=== PATIENT | male | born 1985 | race Caucasian/White ===

== ENCOUNTER 2017-03-23 23:45 | Emergency (ER) | payer SELFPAY ==
[~2017-03-23] VITALS: Ht 175.3 cm; Wt 61.2 kg
[2017-03-23 23:49] VITALS: BP 132/59
--- NOTE | 2017-03-24 00:32 | NUR ---
TO ER OF1
--- NOTE | 2017-03-24 00:33 | NUR ---
Patient being evaluated by physician.
--- NOTE | 2017-03-24 00:37 | NUR ---
PT BIB FAMILY C/O DIFF OF BREATHING, FOR A WEEK, LEFT FLANK PAIN, DIZZINESS, SEEN BY PMD YESTERDAY WITH PRESCRIPTION, NOW WITH DIARRHEA 20 TIMES. PT DENIES ANY TRAUMA, SKIN IS INTACT, PINK/WARM/DRY; AAOX4, PERRL, WITH EVEN AND STEADY GAIT; LUNGS CLEAR BL, BREATHING UNLABORED; HR EVEN AND REGULAR, BL PERIPHERAL PULSES PRESENT; BS ACTIVE X4, NO TENDERNESS TO PALPATION, NO HEPATOSPLENOMEGALLY PALPATED, RESONANT TO PERCUSSION; PT DENIES ANY FEVER, CP, OR COUGH AT THIS TIME; PT STATES 8/10 PAIN AT THIS TIME; VSS; PATIENT POSITIONED FOR COMFORT; HOB ELEVATED; BEDRAILS UP X2; BED DOWN. ER MD TO ARCHIE, ALL ORDER EXECUTED
[2017-03-24] MEDS ORDERED: KETOROLAC 30 MG/ML VIAL IVP ONE (00:40)
[2017-03-24] MEDS ORDERED: cefTRIAXone 2,000 MG in DEXTROSE 5% 100 ML IV ONE (00:40)
[2017-03-24] MEDS ORDERED: NACL 0.9% 1,000 ML IV ONE (00:40)
[2017-03-24] MEDS ORDERED: cefTRIAXone 2,000 MG VIAL ONE (00:51)
--- NOTE | 2017-03-24 00:51 | NUR ---
MOVED TO ER BED 3
[2017-03-24 01:12] LABS: APPEARANCE,URINE CLEAR (CLEAR); BILIRUBIN,URINE NEGATIVE (NEGATIVE); BLOOD, URINE NEGATIVE (NEGATIVE); COLOR,URINE YELLOW (YELLOW); LEUKOCYTE ESTERASE ,URINE NEGATIVE (NEGATIVE); NITRITE, URINE NEGATIVE (NEGATIVE); PROTEIN,URINE NEGATIVE (NEGATIVE); UGLUCOSE NEGATIVE (NEGATIVE); UROBILINOGEN,URINE 0.2 EU/dL (0.2 - 1)
[2017-03-24 01:21] LABS: HEMATOCRIT 46.5 % (36-52); HEMOGLOBIN 15.4 g/dL (12.0-18.0); MEAN CORPUSCULAR HEMOGLOBIN 30 pg (27-31); MEAN CORPUSCULAR HGB CONC 33 g/dL (33-37); MEAN CORPUSCULAR VOLUME 91 fL (80-94); PLATELET COUNT (AUTO) 244 K/uL (140-450); RED BLOOD CELL COUNT(AUTO) 5.14 MIL/uL (4.20-6.10); RED CELL DISTRIBUTION WIDTH 12.2 % (11.6-13.7)
[2017-03-24 01:35] LABS: BASOPHILS % (MANUAL) 0 % (0-2)
[2017-03-24 01:39] LABS: LYMPHOCYTES % (MANUAL) 60 % (20-46); NEUTROPHILS % (MANUAL) 30 (43-65)
[2017-03-24 01:40] LABS: EOSINOPHILS % (MANUAL) 3 % (0-4); MONOCYTES % (MANUAL) 7 % (5-12)
--- NOTE | 2017-03-24 01:41 | NUR ---
Patient appears to be resting comfortably in bed. Vital Signs within normal limits. Respirations even and unlabored.
[2017-03-24 01:47] LABS: ANION GAP 11.7 (8-16); CALCIUM 8.9 mg/dL (8.5-10.1); CARBON DIOXIDE 30.2 mmol/L (21-32); CREATININE 1.1 mg/dL (0.6-1.3); POTASSIUM 3.9 mmol/L (3.5-5.1)
[2017-03-24 01:53] LABS: ALBUMIN 3.8 g/dL (3.4-5.0); TOTAL BILIRUBIN 0.4 mg/dL (0.0-1.0); TOTAL PROTEIN, SERUM 7.9 g/dL (6.4-8.2)
[2017-03-24 02:18] VITALS: BP 112/76
--- NOTE | 2017-03-24 02:18 | NUR ---
Patient discharged with v/s stable. Written and verbal after care instructions given and explained. Patient verbalized understanding. Ambulatory with steady gait. All questions addressed prior to discharge. Advised to follow up with PMD OR RETURN TO ER IF CONDITION WORSENS.
== END 2017-03-24 02:18 | disposition home or self-care (01) ==
LOC: MED 23:45
DX: N12 Tubulo-interstitial nephritis, not specified as acute or chronic (principal); J45.909 Unspecified asthma, uncomplicated
CPT/HCPCS: 36415; 80053; 81003; 85025; 96365; 96375; 99284; J0696; J1885; J7030

== ENCOUNTER 2018-11-10 17:52 | Emergency (ER) | payer SELFPAY ==
[~2018-11-10] VITALS: Ht 175.3 cm; Wt 64.0 kg
[2018-11-10 18:30] VITALS: BP 121/8
--- NOTE | 2018-11-10 19:09 | NUR ---
PATIENT AMBULATED TO BED 9
--- NOTE | 2018-11-10 19:15 | NUR ---
33/M PRESENTS TO ED WITH FAMILY/FRIEND, C/O L ELBOW PAIN, X2 WEEKS, S/P FALL WHILE ICE SKATING. L MEDIAL ELBOW HEMATOMA AND SWELLING NOTED, SKIN INTACT, +TENDERNESS, +CIRCULATION, +SENSATION, DECREASED ROM. REPORTS TAKING TYLENOL WITH LITTLE RELIEF. DENIES MED HX OR RX.
--- NOTE | 2018-11-10 19:37 | NUR ---
HAI DE LA CRUZ AT BEDSIDE
[2018-11-10 20:07] VITALS: BP 123/83
== END 2018-11-10 20:07 | disposition home or self-care (01) ==
LOC: MED 17:52
DX: S52.122A Displaced fracture of head of left radius, initial encounter for closed fracture (principal); J45.909 Unspecified asthma, uncomplicated; Z98.890 Other specified postprocedural states; V00.131A Fall from skateboard, initial encounter; Y93.51 Activity, roller skating (inline) and skateboarding; Y92.89 Other specified places as the place of occurrence of the external cause; Y99.8 Other external cause status
CPT/HCPCS: 29105; 73080; 99283

== ENCOUNTER 2022-03-10 22:51 | Emergency (ER) | payer SELFPAY ==
[~2022-03-10] VITALS: Ht 175.3 cm; Wt 63.5 kg
[2022-03-10 22:53] VITALS: BP 126/69
--- NOTE | 2022-03-10 23:07 | NUR ---
Dr. Cueva at Chair A to exam patient.
[2022-03-10] MEDS ORDERED: LORazepam 2 MG/ML VIAL IM ONE (23:10)
--- NOTE | 2022-03-10 23:15 | NUR ---
Patient ambulated to bed 10.
[2022-03-10] MEDS ORDERED: LORazepam 1 MG TAB PO ONE (23:20)
--- NOTE | 2022-03-10 23:55 | NUR ---
X-ray at bedside.
[2022-03-11] MEDS ORDERED: NACL 0.9% 1,000 ML IV ONE
[2022-03-11] MEDS ORDERED: ATI.5 PO (00:41)
--- NOTE | 2022-03-11 00:54 | NUR ---
Dr. Cueva at bedside to explain results.
[2022-03-11 01:40] VITALS: BP 104/63
--- NOTE | 2022-03-11 01:40 | NUR ---
Patient discharged with v/s stable. Written and verbal after care instructions given and explained. Patient alert, oriented and verbalized understanding of instructions. Ambulatory with steady gait. All questions addressed prior to discharge. ID band removed. Patient advised to follow up with PMD. Rx of LORAZEPAM given. Patient educated on indication of medication including possible reaction and side effects. Opportunity to ask questions provided and answered.
== END 2022-03-11 01:40 | disposition home or self-care (01) ==
LOC: MED 22:51
DX: F41.0 Panic disorder [episodic paroxysmal anxiety] (principal); J45.909 Unspecified asthma, uncomplicated; Z79.899 Other long term (current) drug therapy
CPT/HCPCS: 71045; 93005; 96360; 96361; 96372; 99283; J2060; J7030; Q0092

== ENCOUNTER 2023-11-01 18:13 | Emergency (ER) | payer OTHER ==
[~2023-11-01] VITALS: Ht 175.3 cm; Wt 61.2 kg
[~2023-11-01 18:13] MED LIST: ATI.5 PO
[2023-11-01 18:52] VITALS: PULSE 79; RESP 17; TEMP 98.9; O2SAT 99
[2023-11-01] MEDS ORDERED: KETOROLAC 30 MG/ML VIAL IM ONE (19:05)
[2023-11-01 19:54] LABS: APPEARANCE,URINE CLEAR (CLEAR); BILIRUBIN,URINE NEGATIVE (NEGATIVE); BLOOD, URINE NEGATIVE (NEGATIVE); COLOR,URINE YELLOW (YELLOW); LEUKOCYTE ESTERASE ,URINE NEGATIVE (NEGATIVE); NITRITE, URINE NEGATIVE (NEGATIVE); PROTEIN,URINE NEGATIVE (NEGATIVE); UGLUCOSE NEGATIVE (NEGATIVE); UROBILINOGEN,URINE 0.2 EU/dL (0.2 - 1)
[2023-11-01] MEDS ORDERED: LID5T TP (21:10)
[2023-11-01] MEDS ORDERED: IBUP-2213 PO (21:10)
[2023-11-01] MEDS ORDERED: CYCL-711 PO (21:10)
[2023-11-01 21:22] VITALS: BP 102/68; PULSE 64; RESP 17; TEMP 98.9; O2SAT 97
== END 2023-11-01 21:22 | disposition home or self-care (01) ==
LOC: MED 18:13
DX: R10.9 Unspecified abdominal pain (principal); M54.50 Low back pain, unspecified; J45.909 Unspecified asthma, uncomplicated; Z79.899 Other long term (current) drug therapy; Z79.1 Long term (current) use of non-steroidal anti-inflammatories (NSAID)
CPT/HCPCS: 81003; 96372; 99283; J1885

== ENCOUNTER 2024-03-23 00:04 | Emergency (ER) | payer OTHER ==
[~2024-03-23] VITALS: Ht 175.3 cm; Wt 59.0 kg
[~2024-03-23 00:04] MED LIST changes: +CYCL-711 PO; +IBUP-2213 PO; +LID5T TP
[2024-03-23 00:07] VITALS: BP 123/75; PULSE 60; RESP 24; TEMP 96.5; O2SAT 99
[2024-03-23 00:25] VITALS: O2SAT 100
[2024-03-23] MEDS: LORazepam 2 MG/ML VIAL IM ONE (00:38)
[2024-03-23 01:27] VITALS: BP 99/60; PULSE 71; RESP 19; TEMP 98.3; O2SAT 97
== END 2024-03-23 01:27 | disposition home or self-care (01) ==
LOC: MED 00:04
DX: F41.9 Anxiety disorder, unspecified (principal); J45.909 Unspecified asthma, uncomplicated; Z79.899 Other long term (current) drug therapy
CPT/HCPCS: 96372; 99283; J2060